=== PATIENT | female | born 1940 | race Caucasian/White ===

== ENCOUNTER → 2016-11-05 | Outpatient (CLI) | payer MEDICARE, BC ==
--- NOTE | 2016-11-05 17:30 | BD ---
EXAMINATION TYPE: MG DEXA axial skeleton. DATE OF EXAM: 11/05/2016 3:25 PM COMPARISON: YES CLINICAL HISTORY: 76-year-old female screening Height: 5'4 Weight: 160 FRAX RISK QUESTIONS: Alcohol (3 or more units per day): no Family History (Parent hip fracture): no Glucocorticoids (More than 3mos): no (Ex: prednisone, prednisolone, methylprednisolone, dexamethasone, and hydrocortisone). History of Fracture in Adulthood: no Secondary Osteoporosis: 1. Type 1 Diabetes: no 2. Hyperthyroidism: no 3. Menopause before 45: no 4. Malnutrition: no 5. Chronic liver disease: no Rheumatoid Arthritis: no Current Tobacco Use: no RISK FACTORS HISTORY OF: Drink Alcohol: Diet low in dairy products/other sources of calcium: Postmenopausal woman: Take estrogen and/or progesterone medications: How lon years MEDICATIONS: Additional Medications: blood pressure, pain meds, Additional History: screening EXAM MEASUREMENTS: Bone mineral densitometry was performed using the [employer] System. Bone mineral density as measured about the Lumbar spine is: ----- L1-L4(G/cm2): 1.697 T Score Values are as follows: ----- L2: 2.8 ----- L3: 5.0 ----- L4: 7.2 ----- L1-L-4: 4.3 Bone mineral density has: Increased 2.3 % since study of: 12/20/2013 Bone mineral density about the R hip (g/cm2): 1.416 Bone mineral density about the L hip (g/cm2): 1.451 T Score values are as follows: -----R Neck: 2.7 -----L Neck: 3.0 -----R Intertrochanter: 3.3 -----L Intertrochanter: 2.8 Bone mineral density has: Decreased -0.1% since study of: 12/20/2013 IMPRESSION: Normal (Values between +1 and -1 indicate normal bone mass). Rescreen in 5 years. NOTE: T-SCORE=SD OF THE YOUNG ADULT MEAN.
--- NOTE | 2016-11-07 07:57 | MM ---
Reason for exam: screening (asymptomatic). Last mammogram was performed 1 year and 3 months ago. History: Patient is postmenopausal and history of other cancer. Family history of breast cancer in 2 paternal cousins. Benign FNA biopsy, 1981. Taking estrogen for 15 years 5 months beginning at age 56. Taking progesterone for 15 years 5 months beginning at age 56. Physical Findings: A clinical breast exam by your physician is recommended on an annual basis and results should be correlated with mammographic findings. MG 3D Screening Mammo W/Cad Bilateral CC and MLO view(s) were taken. Prior study comparison: August 14, 2015, left breast MG 3d work up w/cad LT. August 02, 2015, bilateral MG screening mammo w CAD. March 22, 2014, bilateral MG screening mammo w CAD. March 03, 2013, bilateral digital screening mammo w/CAD. The breast tissue is heterogeneously dense. This may lower the sensitivity of mammography. No significant changes when compared with prior studies. ASSESSMENT: Negative, BI-RAD 1 RECOMMENDATION: Routine screening mammogram of both breasts in 1 year.
== END | disposition home or self-care (01) ==
LOC: RADMAMWWP 14:50
PROVIDERS: ATTEND Internal Medicine Geriatric Medicine
DX: Z12.31 Encounter for screening mammogram for malignant neoplasm of breast (principal); Z00.00 Encounter for general adult medical examination without abnormal findings
CPT/HCPCS: 77080; 77063; G0202

== ENCOUNTER → 2018-08-03 | Outpatient (CLI) | payer MEDICARE, BC ==
[2018-08-03 11:00] LABS: Basophils % (A) 1 %; Eosinophils # (A) 0.1 k/uL (0-0.7); Eosinophils % (A) 2 %; HCT 41.2 % (34.0-46.0); HGB 14.2 gm/dL (11.4-16.0); Lymphocytes # (A) 1.5 k/uL (1.0-4.8); Lymphocytes % (A) 27 %; MCH 32.7 pg (25.0-35.0); MCHC 34.6 g/dL (31.0-37.0); MCV 94.7 fL (80.0-100.0); Mean Platelet Volume 6.9; Monocytes # (A) 0.3 k/uL (0-1.0); Monocytes % (A) 6 %; Neutrophils # (A) 3.5 k/uL (1.3-7.7); Neutrophils % (A) 63 %; Platelet Count 273 k/uL (150-450); RBC 4.35 m/uL (3.80-5.40); WBC 5.6 k/uL (3.8-10.6)
[2018-08-03 11:17] LABS: Albumin 4.3 g/dL (3.5-5.0); Calcium 9.8 mg/dL (8.4-10.2); Potassium 4.3 mmol/L (3.5-5.1); Total Bilirubin 0.7 mg/dL (0.2-1.3); Total Protein 6.9 g/dL (6.3-8.2)
[2018-08-03 11:31] LABS: T4, Free (Free Thyroxine) 1.13 ng/dL (0.78-2.19)
--- NOTE | 2018-08-03 11:42 | MR ---
EXAMINATION TYPE: MR lumbar spine wo con DATE OF EXAM: 08/03/2018 COMPARISON: NONE HISTORY: Spinal Stenosis TECHNIQUE: T1 and T2 axial and sagittal images of the lumbar spine are submitted. FINDINGS: There is no abnormal signal seen within the visualized spinal cord or paraspinal soft tissu es. There is sagittal disc bulge at T10-T11. Loss the normal cervical lordosis. At L1-2 there is hypertrophic change of the facets. There is circumferential disc bulging. No foramin al encroachment. No Canal stenosis. At L2-3 there is diffuse circumferential disc bulge with facet arthropathy and ligamentum flavum hype rtrophy. Mild bilateral foraminal encroachment. At L3-4 there is severe degenerative disc disease with facet arthropathy and ligamentum flavum hypert rophy. Broad-based disc bulging is seen. Findings suggest mild central stenosis. There is a 2 mm retr olisthesis of L3 relative to L4 which contributes. [id number] bilateral foraminal encroachment greater on the left. At L4-5 there is degenerative disc disease with advanced facet arthropathy and hypertrophy ligamentum flavum. Broad-based central disc bulging results in borderline central stenosis. Neural foramina are patent. At L5-S1 there is degenerative disc disease and facet arthropathy. No disc herniation or canal stenos is. Mild bilateral foraminal encroachment. IMPRESSION: 1. Multilevel degenerative disc disease with severe changes at L3-L4 and to millimeter retrolisthesis of L3 relative to L4. Retrolisthesis with disc bulging and hypertrophic changes result in mild centr al stenosis. 2. Multilevel facet arthropathy. 3. Borderline central stenosis L4-L5 secondary to circumferential broad-based disc bulging and hypert rophic changes of the facets and ligamentum flavum. 4. Mild bilateral foraminal encroachment L5-S1 secondary to hypertrophic facet arthropathy. 5. There is sagittal disc bulging T10-T11 which is likely partially included on the exam in the lower thoracic spine.
[2018-08-03 21:26] LABS: Hemoglobin A1C 5.3 % (4.0-6.0)
== END | disposition home or self-care (01) ==
LOC: RADMRIMAIN 09:04
PROVIDERS: ATTEND Internal Medicine Geriatric Medicine
DX: M48.061 Spinal stenosis, lumbar region without neurogenic claudication (principal); M43.16 Spondylolisthesis, lumbar region; M51.26 Other intervertebral disc displacement, lumbar region; M51.36 Other intervertebral disc degeneration, lumbar region; M46.87 Other specified inflammatory spondylopathies, lumbosacral region; M46.06 Spinal enthesopathy, lumbar region; Z00.00 Encounter for general adult medical examination without abnormal findings; E03.9 Hypothyroidism, unspecified; K21.9 Gastro-esophageal reflux disease without esophagitis; I10 Essential (primary) hypertension; E78.00 Pure hypercholesterolemia, unspecified; R94.4 Abnormal results of kidney function studies
CPT/HCPCS: 72148; 80053; 80061; 82565; 83036; 84439; 84443; 85025

== ENCOUNTER → 2019-02-23 | Outpatient (CLI) | payer MEDICARE, BC ==
--- NOTE | 2019-02-25 14:07 | MM ---
Reason for exam: screening (asymptomatic). Last mammogram was performed 2 years and 4 months ago. History: Patient is postmenopausal and has history of other cancer at age 76. Family history of breast cancer in 2 paternal cousins. Benign FNA biopsy, 1981. Taking estrogen for 15 years 5 months beginning at age 56. Taking progesterone for 15 years 5 months beginning at age 56. Physical Findings: A clinical breast exam by your physician is recommended on an annual basis and results should be correlated with mammographic findings. MG 3D Screening Mammo W/Cad Bilateral CC and MLO view(s) were taken. Prior study comparison: November 05, 2016, bilateral MG 3d screening mammo w/cad. August 14, 2015, left breast MG 3d work up w/cad LT. The breast tissue is heterogeneously dense. This may lower the sensitivity of mammography. There are benign appearing round calcifications in the left breast. There is no discrete abnormality. ASSESSMENT: Benign, BI-RAD 2 RECOMMENDATION: Routine screening mammogram of both breasts in 1 year.
== END | disposition home or self-care (01) ==
LOC: RADMAMWWP 15:36
PROVIDERS: ATTEND Obstetrics & Gynecology
DX: Z12.31 Encounter for screening mammogram for malignant neoplasm of breast (principal)
CPT/HCPCS: 77063; 77067

== ENCOUNTER → 2019-03-02 | Outpatient (CLI) | payer MEDICARE, BC ==
--- NOTE | 2019-03-03 09:10 | BD ---
EXAMINATION TYPE: Axial Bone Density DATE OF EXAM: 03/02/2019 COMPARISON: NONE CLINICAL HISTORY: Postmenopausal female Height: 64 Weight: 160.8 FRAX RISK QUESTIONS: Alcohol (3 or more units per day): no Family History (Parent hip fracture): no Glucocorticoids (More than 3mos): no (Ex: prednisone, prednisolone, methylprednisolone, dexamethasone, and hydrocortisone). History of Fracture in Adulthood: no Secondary Osteoporosis: 1. Type 1 Diabetes: no 2. Hyperthyroidism: no 3. Menopause before 45: no 4. Malnutrition: no 5. Chronic liver disease: no Rheumatoid Arthritis: no Current Tobacco Use: no RISK FACTORS HISTORY OF: Family History of Osteoporosis: no Active: yes Diet low in dairy products/other sources of calcium: no Postmenopausal woman: age 56 Take estrogen and/or progesterone medications: yes How lon years Lost more than 2 inches in height since high school: no MEDICATIONS: inhalers, premarin, blood pressure, prilosec Additional History: EXAM MEASUREMENTS: Bone mineral densitometry was performed using the [employer] System. Bone mineral density as measured about the Lumbar spine is: ----- L1-L4(G/cm2): 1.732 T Score Values are as follows: ----- L2: 2.9 ----- L3: 6.1 ----- L4: 7.4 ----- L1-L4: 4.6 Bone mineral density has: increased 2.3 % since study of: 11.05.2016 Bone mineral density about the R hip (g/cm2): 1.457 Bone mineral density about the L hip (g/cm2): 1.441 T Score values are as follows: -----R Neck: 3.0 -----L Neck: 2.9 -----R Total: 3.1 -----L Total: 3.1 Bone mineral density has: decreased -2.0 % since study of: 11.05.2016 IMPRESSION: Normal (Values between +1 and -1 indicate normal bone mass). Consider repeating this study in 5 year s or sooner if there is some new clinical indication. NOTE: T-SCORE=SD OF THE YOUNG ADULT MEAN.
== END | disposition home or self-care (01) ==
LOC: RADBDWWP 16:12
PROVIDERS: ATTEND Internal Medicine Geriatric Medicine
DX: M81.0 Age-related osteoporosis without current pathological fracture (principal)
CPT/HCPCS: 77080

== ENCOUNTER → 2019-07-13 | Outpatient (CLI) | payer MEDICARE, BC ==
--- NOTE | 2019-07-13 16:35 | XR ---
Cervical spine HISTORY: Pain, finger numbness 5 views of the cervical spine and 6 images There is an anterolisthesis grade 1 C4-5. Reversal the normal cervical lordosis is present. There is multilevel spondylosis. Loss of disc height is greatest at C6-7, C7-T1. Facet arthropathy changes are present. Mild foraminal encroachment present C5-6 and C6-7 the right, C7 on the left. Cervical verte bral bodies show preserved height. Bone mineralization mildly reduced. IMPRESSION: Degenerative disc disease and facet arthropathy.
== END ==
LOC: RADXRMAIN 14:52
PROVIDERS: ATTEND Internal Medicine Geriatric Medicine
DX: M50.323 Other cervical disc degeneration at C6-C7 level (principal); M46.92 Unspecified inflammatory spondylopathy, cervical region
CPT/HCPCS: 72050

== ENCOUNTER 2019-11-30 10:24 | Day surgery (SDC) | payer MEDICARE, BC, OTHER ==
[2019-11-28 13:11] VITALS: BMI 26.4
[~2019-11-30 10:24] MED LIST: DEXAMETHASONE SOD PHOSPHATE 10 MG/ML 1 ML VIAL IV ONE; LACTATED RINGERS 1,000 ML IV SCH; LIDOCAINE 1% 20 ML VIAL (10MG/ML) FOR IV START INTRADERMA PRN; MOXIFLOXACIN HCL 0.5% DROPS 3 ML BTL OP ONE; ONDANSETRON 4 MG/2 ML VIAL IVP ONE; TETRACAINE 0.5% OPHTH (PF) DROPS 4 ML BTL OP ONE; TIMOLOL 0.5% OPHTH DROPS 5 ML BTL OP ONE
[2019-11-30 11:49] VITALS: RESP 16; TEMP 97.4
[2019-11-30] MEDS: CYCLOPENTOLATE 1% OPHTH SOLN 2 ML BTL OP ONE ×3 (11:53→12:05)
[2019-11-30] MEDS: PHENYLEPHRINE 2.5% OPHTH DRP 2ML OP NR ×2 (11:56→12:02)
[2019-11-30] MEDS ORDERED: MIDAZOLAM 2 MG/2 ML VIAL ONE (12:41)
[2019-11-30] MEDS ORDERED: fentaNYL (PF) 50 MCG/ML 2 ML AMP ONE (12:41)
[2019-11-30] MEDS ORDERED: HYALURONATE SODIUM INTRAOCULAR 1 EACH SYRINGE (12MG/ML) INTRAOCULA ONE (12:43)
[2019-11-30] MEDS ORDERED: BALANCED SALT IRRIG SOLN COMB2 15 ML IRRIG.SOLN IRRIGATION ONE (12:43)
[2019-11-30] MEDS ORDERED: LIDOCAINE 1% (PF) 10MG/ML VIAL SQ ONE (12:44)
[2019-11-30] MEDS ORDERED: EPINEPHrine (PF) 0.3 ML in BALANCED SALT IRRIG SOLN COMB2 500 ML IRRIGATION ONE (12:55)
--- NOTE | 2019-11-30 13:17 | P.OP ---
Date of Procedure: 11/30/19 Preoperative Diagnosis: NS & reg astigm Postoperative Diagnosis: same Procedure(s) Performed: PIOL, OD Implants: MX60T 21.00 x 1.25 Anesthesia: MAC Surgeon: Gopi Munroe Pathology: none sent Condition: stable Disposition: same day Indications for Procedure: blurry vision Operative Findings: no complications
[2019-11-30 13:23] VITALS: PULSE 78
[2019-11-30 13:45] VITALS: BP 124/82
--- NOTE | 2019-12-01 06:39 | OP ---
OPERATIVE REPORT DATE OF SURGERY: November 30, 2019. PROCEDURES: Phacoemulsification of cataract and intraocular lens implant of the right eye. PREOPERATIVE DIAGNOSIS: Nuclear sclerosis and regular astigmatism. POSTOPERATIVE DIAGNOSES: Nuclear sclerosis and regular astigmatism. SURGEON: Dr. Gopi Munroe. ANESTHESIA: Topical. ESTIMATED BLOOD LOSS: None. SPECIMEN TAKEN: None. NARRATIVE: After obtaining the appropriate consent, the patient was brought to the operating room there she was asked to sit upright and the axes of 0 and 180 degrees were identified and marked with a gentian brunilda marker on the patient's cornea. This was followed by placing her in the proper supine position under cardiac monitoring, followed by being prepped and draped in the usual sterile manner. She was approached from her right temporal side. Using previously acquired corneal topography information, the axis of 4 degrees was identified and marked with a corneal marking instrument. At the 11 o'clock position an MVR blade was used to create a paracentesis port through this opening 1% Xylocaine MPF 50:50 mix of balanced salt solution was injected into the anterior chamber. This was followed by stabilization of the anterior chamber with Amvisc. At the 3 o'clock position a 2.5 mm keratome was used to create a self-sealing flap incision. Through this opening, a cystotome was introduced to begin the continuous tear capsulorrhexis which was completed using the Utrata forceps. Hydrodissection and hydrodelineation of the lens was accomplished with balanced salt solution. Phacoemulsification lens utilizing phaco chop was accomplished in 15 seconds of 15% power. Additional Xylocaine MPF was instilled into the anterior chamber. This was followed by removal of the remaining cortex under irrigation and aspiration as well as careful polishing of the posterior capsule in the capsule vacuum mode. Amvisc was then used to stabilize the capsular bag and a [employer]ausch [employer] Lomb MX60T 21 diopter by 1.25 diopter posterior chamber intraocular lens was then inserted into the capsular bag without difficulty. The remaining viscoelastic was removed from in and around the intraocular lens as well as the posterior capsule. Following deployment of the haptics, the intraocular lens was then rotated to correspond to the axis of 4 degrees, which had previously been identified on the patient's cornea. Following the correct position, the intraocular lens was tamponaded against the posterior capsule to attempt to stabilize its axis. The irrigation aspiration instrument was then removed carefully from the anterior chamber. The temporal incision was hydrated slightly and the eye was brought to normal intraocular pressure through the paracentesis port with balanced salt solution. She then received 2 drops of 0.5% timolol followed by 2 drops of moxifloxacin and was then lightly patched and shielded in the usual manner. There were no complications from the procedure. She tolerated the procedure well and was returned to outpatient recovery in good condition. MMODL / MYRANDAN: [id number] /
== END 2019-11-30 13:58 | disposition home or self-care (01) ==
LOC: OR 10:24
PROVIDERS: ATTEND Ophthalmology
DX: H25.13 Age-related nuclear cataract, bilateral (principal); H52.223 Regular astigmatism, bilateral; H00.023 Hordeolum internum right eye, unspecified eyelid; H00.026 Hordeolum internum left eye, unspecified eyelid; H52.03 Hypermetropia, bilateral; H52.4 Presbyopia; I10 Essential (primary) hypertension; H04.129 Dry eye syndrome of unspecified lacrimal gland; H91.90 Unspecified hearing loss, unspecified ear; M45.9 Ankylosing spondylitis of unspecified sites in spine; M25.572 Pain in left ankle and joints of left foot; M25.571 Pain in right ankle and joints of right foot; F41.9 Anxiety disorder, unspecified; J45.909 Unspecified asthma, uncomplicated; Z88.0 Allergy status to penicillin; Z88.2 Allergy status to sulfonamides; Z88.1 Allergy status to other antibiotic agents; Z98.890 Other specified postprocedural states; Z90.49 Acquired absence of other specified parts of digestive tract; Z85.820 Personal history of malignant melanoma of skin; Z96.652 Presence of left artificial knee joint; Z79.899 Other long term (current) drug therapy; Z79.1 Long term (current) use of non-steroidal anti-inflammatories (NSAID); Z79.890 Hormone replacement therapy; Z87.891 Personal history of nicotine dependence; Z97.3 Presence of spectacles and contact lenses; Z85.828 Personal history of other malignant neoplasm of skin; Z83.518 Family history of other specified eye disorder; Z80.42 Family history of malignant neoplasm of prostate; Z82.49 Family history of ischemic heart disease and other diseases of the circulatory system
CPT/HCPCS: 66984; C1780; J2250; J1100; J2405; J0171; J3010; J2001

== ENCOUNTER 2019-12-14 08:11 | Day surgery (SDC) | payer MEDICARE, BC, OTHER ==
[2019-12-12 12:35] VITALS: BMI 26.6
[~2019-12-14 08:11] MED LIST changes: -DEXAMETHASONE SOD PHOSPHATE 10 MG/ML 1 ML VIAL IV ONE; -ONDANSETRON 4 MG/2 ML VIAL IVP ONE
[2019-12-14 08:39] VITALS: TEMP 96.7
[2019-12-14] MEDS: CYCLOPENTOLATE 1% OPHTH SOLN 2 ML BTL OP ONE ×3 (08:43→08:57)
[2019-12-14] MEDS: PHENYLEPHRINE 2.5% OPHTH DRP 2ML OP NR ×3 (08:46→09:01)
[2019-12-14] MEDS ORDERED: MIDAZOLAM 2 MG/2 ML VIAL ONE (09:28)
[2019-12-14] MEDS ORDERED: fentaNYL (PF) 50 MCG/ML 2 ML AMP ONE (09:28)
[2019-12-14] MEDS ORDERED: BALANCED SALT IRRIG SOLN COMB2 15 ML IRRIG.SOLN IRRIGATION ONE (09:45)
[2019-12-14] MEDS ORDERED: HYALURONATE SODIUM INTRAOCULAR 1 EACH SYRINGE (12MG/ML) INTRAOCULA ONE (09:45)
[2019-12-14] MEDS ORDERED: LIDOCAINE 1% (PF) 10MG/ML VIAL SQ ONE (09:46)
[2019-12-14] MEDS ORDERED: EPINEPHrine (PF) 0.3 ML in BALANCED SALT IRRIG SOLN COMB2 500 ML IRRIGATION ONE (09:46)
--- NOTE | 2019-12-14 10:02 | P.OP ---
Date of Procedure: 12/14/19 Preoperative Diagnosis: NS & astigmatism, reg Postoperative Diagnosis: same Procedure(s) Performed: PIOL, OS Implants: MX60T 21.50x 2.00 Anesthesia: MAC Surgeon: Gopi Munroe Pathology: none sent Condition: stable Disposition: same day Indications for Procedure: blurry vision Operative Findings: no complications
[2019-12-14 10:17] VITALS: BP 108/61; PULSE 79; RESP 18
--- NOTE | 2019-12-14 23:25 | OP ---
OPERATIVE REPORT DATE OF SURGERY: 12/14/2019. PROCEDURE: Phacoemulsification of cataract and intraocular lens implant of the left eye. PREOPERATIVE DIAGNOSES: Nuclear sclerosis and regular astigmatism. POSTOPERATIVE DIAGNOSES: Nuclear sclerosis and regular astigmatism. SURGEON: Dr. Gopi Munroe. ANESTHESIA: Topical. ESTIMATED BLOOD LOSS: None. SPECIMEN TAKEN: None. NARRATIVE: After obtaining the appropriate consent, the patient was brought to the operating room. There she was asked to sit upright, and the axis of 0 and 180 degrees was identified and marked with a gentian brunilda marker. She was then placed in the proper supine position under cardiac monitoring, then prepped and draped in the usual sterile manner. She was approached from her left temporal side, and using previously acquired corneal topography information, the axis of 5 degrees was identified and marked with a corneal axis marker. At the 5 o'clock position an MVR blade was used to create a paracentesis port. Through this opening 1% xylocaine MPF 50:50 mix with balanced-salt solution was injected into the anterior chamber. This was followed by stabilization with Amvisc. At the 3 o'clock position, a 2.5 mm keratome was used to create a self-sealing corneal flap incision. Through this opening a cystotome was introduced to begin a continuous tear capsulorrhexis, which was then completed using the Utrata forceps. Hydrodissection and hydrodelineation of the lens was accomplished with balanced-salt solution. Phacoemulsification of the lens utilizing Phaco Chop was accomplished in 17.12 seconds at 11% power. Additional xylocaine MPF was instilled in the anterior chamber. This was followed by removal of the remaining cortex under irrigation and aspiration along with careful polishing of the posterior capsule in the capsule vacuum mode. Amvisc was used to stabilize the capsular bag and a Bausch and Lomb MX60T 21.5 diopter sphere x 2 diopter cylinder posterior chamber intraocular lens was then injected into the capsular bag without difficulty. The remaining viscoelastic was removed from in and around the intraocular lens and hash koo were identified and aligned with the axis of 5 degrees as previously noted on the patient's cornea. The remaining viscoelastic was then removed from the anterior chamber. The eye was then brought to normal intraocular pressure through the paracentesis port with balanced-salt solution and the incisions were confirmed watertight. She then received 2 drops of 0.5% timolol followed by 2 drops of moxifloxacin, was then lightly patched and shielded in the usual manner. There were no complications from the procedure. She tolerated the procedure well and was returned to Outpatient Recovery in good condition. SHAVON / JUNE: [id number] /
== END 2019-12-14 10:33 | disposition home or self-care (01) ==
LOC: OR 08:11
PROVIDERS: ATTEND Ophthalmology
DX: H25.12 Age-related nuclear cataract, left eye (principal); H52.223 Regular astigmatism, bilateral; H00.023 Hordeolum internum right eye, unspecified eyelid; H00.026 Hordeolum internum left eye, unspecified eyelid; H52.03 Hypermetropia, bilateral; H52.4 Presbyopia; H04.129 Dry eye syndrome of unspecified lacrimal gland; Z96.1 Presence of intraocular lens; I10 Essential (primary) hypertension; Z85.820 Personal history of malignant melanoma of skin; J45.909 Unspecified asthma, uncomplicated; M19.90 Unspecified osteoarthritis, unspecified site; K21.9 Gastro-esophageal reflux disease without esophagitis; Z90.49 Acquired absence of other specified parts of digestive tract; Z96.659 Presence of unspecified artificial knee joint; Z98.890 Other specified postprocedural states; Z83.518 Family history of other specified eye disorder; Z80.42 Family history of malignant neoplasm of prostate; Z82.49 Family history of ischemic heart disease and other diseases of the circulatory system; Z79.1 Long term (current) use of non-steroidal anti-inflammatories (NSAID); Z79.899 Other long term (current) drug therapy; Z88.1 Allergy status to other antibiotic agents; Z88.0 Allergy status to penicillin; Z88.2 Allergy status to sulfonamides
CPT/HCPCS: 66984; V2787; C1780; J2250; J0171; J3010; J2001

== ENCOUNTER → 2020-06-19 | Outpatient (CLI) | payer MEDICARE ==
--- NOTE | 2020-06-19 17:57 | ECHOF ---
Referral Reason:I27.20 Pulmonary hypertension MEASUREMENTS -------- HEIGHT: 162.6 cm WEIGHT: 73.5 kg BP: 140/82 RVIDd: 2.5 cm (< 3.3) IVSd: 1.0 cm (0.6 - 1.1) LVIDd: 4.6 cm (3.9 - 5.3) LVPWd: 1.1 cm (0.6 - 1.1) IVSs: 1.6 cm LVIDs: 3.2 cm LVPWs: 1.3 cm LA Diam: 3.2 cm (2.7 - 3.8) LAESV Index (A-L): 18.72 ml/m Ao Diam: 3.2 cm (2.0 - 3.7) AV Cusp: 1.7 cm (1.5 - 2.6) MV EXCURSION: 16.074 mm (> 18.000) MV EF SLOPE: 58 mm/s (70 - 150) EPSS: 0.3 cm MV E Jonny: 0.90 m/s MV DecT: 275 ms MV A Jonny: 1.03 m/s MV E/A Ratio: 0.87 RAP: 5.00 mmHg RVSP: 24.18 mmHg FINDINGS -------- Sinus rhythm. This was a technically good study. The left ventricular size is normal. There is borderline concentric left ventricular hypertrophy. Overall left ventricular systolic function is normal with, an EF between 60 - 65 %. Sigmoid shaped septum with focal hypertrophy of the basal septum. The remaining wall thickness is normal. The right ventricle is normal in size. Normal LA size by volume 22+/-6 ml/m2. The right atrium is normal in size. Interatrial and interventricular septum intact. The aortic valve is trileaflet and appears structurally normal. There is trace to mild mitral regurgitation. Trace tricuspid regurgitation present. Right ventricular systolic pressure is normal at < 35 mmHg. Trace/mild (physiologic) pulmonic regurgitation. The aortic root size is normal. Normal inferior vena cava with normal inspiratory collapse consistent with estimated right atrial pre ssure of 5 mmHg. The inferior vena cava is mildly dilated. There is no pericardial effusion. CONCLUSIONS -------- 1. The left ventricular size is normal. 2. There is borderline concentric left ventricular hypertrophy. 3. Overall left ventricular systolic function is normal with, an EF between 60 - 65 %. 4. Sigmoid shaped septum with focal hypertrophy of the basal septum. The remaining wall thickness is normal. 5. There is trace to mild mitral regurgitation. 6. Trace tricuspid regurgitation present. 7. Trace/mild (physiologic) pulmonic regurgitation. 8. The inferior vena cava is mildly dilated. 9. There is no pericardial effusion. [facility] AGENT: Juany Correia RDCS
== END | disposition home or self-care (01) ==
LOC: RADECHMAIN 14:55
PROVIDERS: ATTEND Internal Medicine Geriatric Medicine
DX: I08.1 Rheumatic disorders of both mitral and tricuspid valves (principal)
CPT/HCPCS: 93306

== ENCOUNTER → 2020-08-31 | Outpatient (CLI) | payer MEDICARE ==
--- NOTE | 2020-09-03 10:21 | MM ---
Reason for exam: screening (asymptomatic). Last mammogram was performed 1 year and 6 months ago. History: Patient is postmenopausal and has history of other cancer at age 76. Family history of breast cancer in 2 paternal cousins. Benign FNA biopsy, 1981. Taking estrogen for 15 years 5 months beginning at age 56. Taking progesterone for 15 years 5 months beginning at age 56. Physical Findings: A clinical breast exam by your physician is recommended on an annual basis and results should be correlated with mammographic findings. MG 3D Screening Mammo W/Cad Bilateral CC and MLO view(s) were taken. Prior study comparison: February 23, 2019, bilateral MG 3d screening mammo w/cad. November 05, 2016, bilateral MG 3d screening mammo w/cad. The breast tissue is heterogeneously dense. This may lower the sensitivity of mammography. There is no discrete abnormality. No significant changes when compared with prior studies. ASSESSMENT: Negative, BI-RAD 1 RECOMMENDATION: Routine screening mammogram of both breasts in 1 year.
== END | disposition home or self-care (01) ==
LOC: RADMAMWWP 15:10
PROVIDERS: ATTEND Obstetrics & Gynecology
DX: Z12.31 Encounter for screening mammogram for malignant neoplasm of breast (principal)
CPT/HCPCS: 77063; 77067

== ENCOUNTER → 2020-11-09 | Outpatient (CLI) | payer MEDICARE ==
[2020-11-09 13:15] LABS: African American GFR (CKD) >90 (>60 ml/min/1.73 sqM); Blood Urea Nitrogen 20 mg/dL (7-17); Non-African American GFR(CKD) 84 (>60 ml/min/1.73 sqM)
--- NOTE | 2020-11-09 13:45 | CT ---
EXAMINATION TYPE: CT chest w con DATE OF EXAM: 11/09/2020 COMPARISON: NONE HISTORY: Chronic cough. CT DLP: 436 mGycm. Automated Exposure Control for Dose Reduction was Utilized. TECHNIQUE: CT scan of the thorax is performed following with IV Contrast, patient injected with 100 mL of Isovue M300. MIP Images are created on CT scanner and reviewed. 3D reconstructed images are cr eated on an independent workstation and reviewed. FINDINGS: LUNGS: Mild biapical pleural/parenchymal scarring. No suspicious focal consolidation or groundglass opacity. There is no pleural effusion or pneumothorax seen. No suspicious nodules or masses. Mild l eft basilar linear scarring. The tracheobronchial tree is patent. MEDIASTINUM: There are no greater than 1 cm hilar or mediastinal lymph nodes. No cardiomegaly or pe ricardial effusion is seen. Mucous hypertrophy of the intra-arterial septum. Coronary artery calcifi cation is present which is noted underlying coronary artery disease. OTHER: Cholecystectomy clips. Stomach poorly distended and thus suboptimally evaluated. Underlying S- shaped scoliosis. Moderate multilevel spurring in the spine. IMPRESSION: Mild to minimal chronic changes. No acute pulmonary process.
== END | disposition home or self-care (01) ==
LOC: RADCTMAIN 11:56
PROVIDERS: ATTEND Internal Medicine Critical Care Medicine
DX: R91.8 Other nonspecific abnormal finding of lung field (principal); R05 Cough
CPT/HCPCS: 82565; 84520; 71260; 36415; Q9967

== ENCOUNTER → 2020-12-25 | Outpatient (CLI) | payer MEDICARE ==
[~2020-12-25] MED LIST changes: -LACTATED RINGERS 1,000 ML IV SCH; -LIDOCAINE 1% 20 ML VIAL (10MG/ML) FOR IV START INTRADERMA PRN; -MOXIFLOXACIN HCL 0.5% DROPS 3 ML BTL OP ONE; +REGADENOSON 0.4 MG/5 ML SYRINGE IV PRN; -TETRACAINE 0.5% OPHTH (PF) DROPS 4 ML BTL OP ONE; -TIMOLOL 0.5% OPHTH DROPS 5 ML BTL OP ONE
--- NOTE | 2020-12-25 12:31 | NM ---
EXAMINATION TYPE: NM stress lexiscan cardiolite DATE OF EXAM: 12/25/2020 COMPARISON: Chest CT November 09, 2020 HISTORY: History of hypertension and asthma along with tobacco use and hypercholesterolemia presents with chest pain and tightness TECHNIQUE: After the intravenous administration of 9.2 mCi Tc 99m Sestamibi - Cardiolite resting SPE CT images acquired 45 minutes post injection. The patient received 0.4mg Lexiscan, 25.2 mCi Tc 99m Sestamibi - Stress images obtained [address] injection FINDINGS: Review of stress and rest SPECT images demonstrates no distinct perfusion abnormality. Gated analysi s shows normal wall motion with an estimated left ventricular ejection fraction of 68 %. IMPRESSION: No scintigraphic evidence for reversible ischemia.
--- NOTE | 2020-12-25 14:17 | EST ---
EXERCISE STRESS AGE: 80 SEX: Female HT: 5'4" WT: 156 PROTOCOL: Lexiscan Cardiolite STAGE: N/A DURATION OF EXERCISE: N/A HEART RATE REST: 76 BLOOD PRESSURE REST: 139/94 MAXIMUM HEART RATE ACHIEVED: 88 MAXIMUM BLOOD PRESSURE: 142/73 85% MPHR: 120 100% MPHR: 141 METS: N/A INDICATIONS: chest tightness CLINICAL INFORMATION: Baseline rhythm is a sinus mechanism, rate of 76, normal axis and intervals, poor R progression, cannot exclude anteroseptal myocardial infarction. Baseline blood pressure 139/94 mmHg. Patient received injection of Lexiscan. Electrocardiograph monitoring revealed no evidence of diagnostic ischemic ST deviation. Single PVCs were noted. Cardiolite was injected per protocol. CONCLUSION: 1. Nondiagnostic electrocardiograph stress testing. 2. Nuclear images will be reported separately. MMODL / IJN: [id number] /
== END ==
LOC: RADNMMAIN 08:00
PROVIDERS: ATTEND Internal Medicine Geriatric Medicine
DX: I10 Essential (primary) hypertension (principal); J45.909 Unspecified asthma, uncomplicated; Z72.0 Tobacco use
CPT/HCPCS: 93017; 78452; A9500; J2785

== ENCOUNTER 2021-06-05 09:13 | Day surgery (SDC) | payer MEDICARE ==
[2021-06-04 09:07] VITALS: BMI 27.3
[~2021-06-05 09:13] MED LIST changes: +LACTATED RINGERS 1,000 ML IV SCH; +LIDOCAINE 1% (10MG/ML) FOR IV START INTRADERMA PRN; -REGADENOSON 0.4 MG/5 ML SYRINGE IV PRN
[2021-06-05 10:40] VITALS: RESP 16; TEMP 98.4
[2021-06-05] MEDS ORDERED: LIDOCAINE 1% INJ 10MG/ML (20 ML MDV) ONE (11:26)
[2021-06-05] MEDS ORDERED: PROPOFOL 10 MG/ML 20 ML VIAL IV ONE (11:26)
--- NOTE | 2021-06-05 11:35 | P.PCN ---
Date of Procedure: 06/05/21 Procedure(s) Performed: BRIEF HISTORY: Patient is a 81-year-old, pleasant, white female scheduled for an upper endoscopy as a part of evaluation long-standing history of GERD for which she is on omeprazole 20 mg daily. PROCEDURE PERFORMED: Esophagogastroduodenoscopy. PREOPERATIVE DIAGNOSIS: Long-standing history of GERD. IV sedation per anesthesia. PROCEDURE: After informed consent was obtained, the patient was brought into the endoscopy unit. IV sedation was administered by Anesthesia under continuous monitoring. Initially the Olympus GIF-140 video endoscope was inserted into the mouth. Esophagus intubated without any difficulty. It was gradually advanced into the stomach and duodenum and carefully examined. The bulb and the second part of the duodenum appeared normal. The scope at this time was withdrawn to the stomach, adequately insufflated with air, and upon careful examination, muc mahsa of the antrum, body, cardia and the fundus appeared normal. The scope was then withdrawn into the esophagus. The GE junction was located at 35 cm from the incisors. Small sliding-type well hernia noted. The esophagus appeared normal. There were no erosions or ulcerations seen . No evidence of Snow's esophagus and the patient tolerated the procedure well. IMPRESSION: 1. Small hiatal hernia. 2. No evidence of esophagitis or Snow's esophagus. RECOMMENDATIONS: The findings of this examination were discussed with the patient and is a family.. She was advised to continue with omeprazole 20 mg daily and follow antireflux measures.
[2021-06-05 11:49] VITALS: BP 104/62; PULSE 71
== END 2021-06-05 12:13 | disposition home or self-care (01) ==
LOC: ORWHC2ENDO 09:13
PROVIDERS: ATTEND Internal Medicine Gastroenterology
DX: K21.9 Gastro-esophageal reflux disease without esophagitis (principal); K44.9 Diaphragmatic hernia without obstruction or gangrene; Z88.0 Allergy status to penicillin; Z88.2 Allergy status to sulfonamides; Z79.899 Other long term (current) drug therapy; M19.90 Unspecified osteoarthritis, unspecified site; Z85.828 Personal history of other malignant neoplasm of skin; E78.5 Hyperlipidemia, unspecified; I25.10 Atherosclerotic heart disease of native coronary artery without angina pectoris; J45.909 Unspecified asthma, uncomplicated
CPT/HCPCS: 43235; J2001; J2704

== ENCOUNTER → 2021-12-17 | Outpatient (CLI) | payer MEDICARE ==
--- NOTE | 2021-12-17 20:10 | CT ---
EXAMINATION TYPE: CT brain wo con DATE OF EXAM: 12/17/2021 COMPARISON: CT dated 03/09/2013 HISTORY: headache following head injury [address] DLP: 961 mGycm Automated exposure control for dose reduction was used. TECHNIQUE: CT scan of the brain is performed without IV contrast administration. FINDINGS: Unremarkable morphology of the cerebral hemispheres, cerebellum and brainstem. No acute intracranial hemorrhage. No gross acute cortical infarct. No midline shift, herniation or ventriculectomy. Unremarkable nowak-white matter differentiation, basal cisterns, sella and CP angles. No gross space-o ccupying lesion, vasogenic edema or mass effect. Unremarkable orbits. Clear visualized paranasal sinuses and mastoid air cells. Degenerative changes o f the TMJs. IMPRESSION: No acute intracranial abnormality or gross space-occupying lesion by this nonenhanced CT scan.
== END | disposition home or self-care (01) ==
LOC: RADCTMAIN 16:05
PROVIDERS: ATTEND Internal Medicine Geriatric Medicine
DX: R51.9 Headache, unspecified (principal)
CPT/HCPCS: 70450

== ENCOUNTER → 2022-04-02 | Outpatient (CLI) | payer MEDICARE ==
--- NOTE | 2022-04-03 07:49 | US ---
EXAMINATION TYPE: US st tissue neck DATE OF EXAM: 04/02/2022 COMPARISON: CT 11/09/2020. CLINICAL HISTORY: 81-year-old female R22.1 SWELLING, MASS AND LUMP. Hotbed Operator notes: Visible lump and palp superior to right collarbone. TECHNIQUE AND FINDINGS: Hotbed Operator notes: Area of concern scanned. Hypoechoic nonvascular area seen measuring 3.4 x 2.2 x 1 .8 cm. Some of this area appears solid and some appears to be comprised of fluid. Some of the images suggest that the lesion is centered at the sternoclavicular joint. We suspect degenerative change and a seco ndary joint effusion and capsular thickening. Contralateral images taken. No abnormality is seen on the contralateral side. IMPRESSION: Targeted scanning right base of the neck. Images seem to show the right sternoclavicular joint and a large 3.4 cm area of heterogeneous capsular distention with mixed fluid and synovial thickening. Prob ably on the basis of right sternoclavicular joint OA. Clinically correlate to corroborate. CT can be considered to assess for potential changes compared to 11/09/2020.
== END | disposition home or self-care (01) ==
LOC: RADUSWWP 15:43
PROVIDERS: ATTEND Internal Medicine Geriatric Medicine
DX: R22.1 Localized swelling, mass and lump, neck (principal)
CPT/HCPCS: 76536

== ENCOUNTER 2022-10-12 16:51 | Emergency (ER) | payer MEDICARE ==
[2022-10-12 17:03] VITALS: BP 196/95; PULSE 67; RESP 18; TEMP 97.5
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
--- NOTE | 2022-10-12 17:33 | XR ---
EXAMINATION TYPE: XR foot complete RT DATE OF EXAM: 10/12/2022 COMPARISON: NONE HISTORY: Pain TECHNIQUE: 3 views FINDINGS: There is plantar calcaneal spurring. Metatarsals are intact. The toes are intact. There is no evidence of fracture nor dislocation. IMPRESSION: Calcaneal spurring. No fracture seen.
== END 2022-10-12 18:18 | disposition home or self-care (01) ==
LOC: EC 16:51
DX: S90.31XA Contusion of right foot, initial encounter (principal); I10 Essential (primary) hypertension; J45.909 Unspecified asthma, uncomplicated; K21.9 Gastro-esophageal reflux disease without esophagitis; Z88.0 Allergy status to penicillin; Z88.1 Allergy status to other antibiotic agents; Z88.2 Allergy status to sulfonamides; Z87.891 Personal history of nicotine dependence; Z79.899 Other long term (current) drug therapy; V89.2XXA Person injured in unspecified motor-vehicle accident, traffic, initial encounter; Y93.A3 Activity, aerobic and step exercise; Y92.410 Unspecified street and highway as the place of occurrence of the external cause
CPT/HCPCS: 99284

== ENCOUNTER → 2022-10-23 | Outpatient (CLI) | payer MEDICARE ==
--- NOTE | 2022-10-23 12:59 | CA ---
Exercise Stress Test Report Name: Kami Lizarraga Exam Date: 10/23/2022 09:14 Exam Location: [place] Stress Ht (in): 64 Wt (lb): 146 BSA: 1.71 Ordering Phys: Jessica Martin MD Referring Phys: Isabella De Los Santos Technologist: Keyur Rich Age: 82 Gender: F : 1940 Procedure CPT: Indications: I25.10 ICD-10 Codes: Patient History: Patient is post stent in August. Clearance for cardiac rehab. Medications: Meds past 24 hrs: Pretest Chest Pain: STRESS TEST Modified Chris Protocol Exercise Duration (min:sec): 07:[address] Depressions (mm): Angina Score: Rivera Score: Resting HR (bpm): 72 Peak HR (bpm): 109 Resting BP (mmHg): 142 / 89 Peak BP (mmHg): 192 / 94 MPHR: 139 Target HR: 118 % MPHR: 78 METS: 3.5 Total Dose: Peak Dose: Atropine: Double Product: 34970 BP Response: Stress Termination: Fitgue Stress Symptoms: No chest pain or symptoms Stress Summary: ECG ANALYSIS Resting ECG: Stress ECG: CONCLUSIONS Patient underwent exercise stress EKG with a Chris protocol treadmill stress test. Patient exercised into Stage 3 for a total of 7 minutes. Patient's maximum heart rate was 109 which represented 78 % age-predicted maximum heart rate. Stress EKG findings: At baseline patient's EKG showed normal sinus rhythm, normal axis, Q-wave in V1 and V2, no significant ST or T wave abnormalities. At peak exercise, EKG showed rare PVCs and no significant ST or T wave abnormalities. Conclusions: 1. Inadequate study to assess for ischemia given patient only reached 78% maximum predicted heart rate 2. However at 78% maximum predicted heart rate, no inducible ischemia 3. Fair exercise capacity. Dr. Tyron Solorio DO (Electronically Signed) Final Date: 23 October 2022 12:58
== END | disposition home or self-care (01) ==
LOC: RADNMMAIN 08:38
PROVIDERS: ATTEND Internal Medicine Cardiovascular Disease
DX: I25.10 Atherosclerotic heart disease of native coronary artery without angina pectoris (principal)
CPT/HCPCS: 93017

== ENCOUNTER 2022-11-03 13:53 | Emergency (ER) | payer OTHER, MEDICARE ==
[2022-11-03 14:59] VITALS: RESP 18
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
[2022-11-03 18:23] VITALS: BP 166/79; PULSE 67; TEMP 97.8
== END 2022-11-03 17:50 | disposition home or self-care (01) ==
LOC: EC 13:53
DX: S16.1XXA Strain of muscle, fascia and tendon at neck level, initial encounter (principal); S46.912A Strain of unspecified muscle, fascia and tendon at shoulder and upper arm level, left arm, initial encounter; R42 Dizziness and giddiness; M13.88 Other specified arthritis, other site; J45.909 Unspecified asthma, uncomplicated; K21.9 Gastro-esophageal reflux disease without esophagitis; E78.5 Hyperlipidemia, unspecified; I10 Essential (primary) hypertension; Z87.891 Personal history of nicotine dependence; Z88.0 Allergy status to penicillin; Z88.2 Allergy status to sulfonamides; Z88.8 Allergy status to other drugs, medicaments and biological substances; Z79.899 Other long term (current) drug therapy; V49.40XA Driver injured in collision with unspecified motor vehicles in traffic accident, initial encounter
CPT/HCPCS: 70450; 72125; 99284

== ENCOUNTER → 2023-08-06 | Outpatient (CLI) | payer MEDICARE ==
--- NOTE | 2023-08-10 01:44 | MM ---
Reason for Exam: Screening (asymptomatic). Last mammogram was performed 2 year(s) and 11 month(s) ago. Patient History: Menarche at age 14. First Full-Term at age 24. Postmenopausal. Other cancer, age 76. Currently using Estrogen, beginning at age 56 for 15 years, 5 months. Currently using Progesterone, beginning at age 56 for 15 years, 5 months. Benign FNA Biopsy. Paternal cousin had breast cancer. Paternal cousin had breast cancer. Risk Values: Deepthi 5 year model risk: 1.7%. NCI Lifetime model risk: 2.2%. Prior Study Comparison: 11/05/2016 Bilateral Screening Mammogram, [facility]. 02/23/2019 Bilateral Screening Mammogram, [facility]. 08/31/2020 Bilateral Screening Mammogram, [facility]. Tissue Density: The breast tissue is heterogeneously dense. This may lower the sensitivity of mammography. Findings: Analyzed By CAD. In the right breast, subareolar asymmetric densities remain unchanged. There is no suspicious group of microcalcifications or new suspicious mass in either breast. Overall Assessment: Benign, BI-RAD 2 Management: Screening Mammogram of both breasts in 1 year. . Patient should continue monthly self-breast exams. A clinical breast exam by your physician is recommended on an annual basis. This exam should not preclude additional follow-up of suspicious palpable abnormalities. Note on Deepthi scores and lifetime risk: 1. A Deepthi score greater than 3% is considered moderate risk. If this is the case, consider specialist referral to assess eligibility for a risk reducing agent. 2. If overall lifetime risk for the development of breast cancer is 20% or higher, the patient may qualify for future screening with alternating mammogram and breast MRI. Electronically signed and approved by: Roberto Lunsford M.D. Radiologist
== END | disposition home or self-care (01) ==
LOC: RADMAMWWP 13:30
PROVIDERS: ATTEND Internal Medicine Geriatric Medicine
DX: Z12.31 Encounter for screening mammogram for malignant neoplasm of breast (principal); Z78.0 Asymptomatic menopausal state; Z80.3 Family history of malignant neoplasm of breast
CPT/HCPCS: 77063; 77067

== ENCOUNTER → 2023-08-26 | Outpatient (CLI) | payer MEDICARE ==
--- NOTE | 2023-08-26 14:35 | XR ---
EXAMINATION TYPE: XR cervical spine comp DATE OF EXAM: 08/26/2023 COMPARISON: 07/13/2019 HISTORY: 83 year-old female in 5 4.2, cervicalgia, neck pain, numbness down both arms. TECHNIQUE: 6 views FINDINGS: Multilevel facet and uncovertebral joint arthropathy greatest in the mid and lower cervical spine. No predental space widening or prevertebral soft tissue swelling. Degenerative change of the C1 dens ar ticulation. Moderate to advanced disc/endplate degenerative change at C6-C7 and C7-T1. The cervicothoracic juncti on is obscured by the patient's shoulders and not assessed. Normal odontoid view. Reversal of the normal cervical lordosis along the lower cervical spine. Degenerative grade 1 anterolisthesis C3-C4, C4-C5, C5-C6. Grade 1 retrolisthesis C6-C7. On the right, multilevel mild bony neuroforaminal narrowing, mild to moderate at C2-C3 and C3-C4. On the left, there appears to be severe bony neural foraminal narrowing at C6-C7 and moderate at C5-C 6 and C7-T1. Mild C4-C5. IMPRESSION: 1. Moderate to advanced spondylotic change especially mid to lower cervical spine shows slight progre ssion from 2019. 2. Degenerative grade 1 spondylolisthesis C3-C7 levels, newly developed at C3-C4. 3. Severe bony neuroforaminal narrowing on the left at C6-C7. Additional variable mild and moderate n euroforaminal narrowing as outlined above.
== END | disposition home or self-care (01) ==
LOC: RADXRMAIN 13:40
PROVIDERS: ATTEND Internal Medicine Geriatric Medicine
DX: M47.812 Spondylosis without myelopathy or radiculopathy, cervical region (principal); M43.12 Spondylolisthesis, cervical region; M99.71 Connective tissue and disc stenosis of intervertebral foramina of cervical region
CPT/HCPCS: 72050

== ENCOUNTER → 2024-01-11 | Outpatient (CLI) | payer MEDICARE ==
--- NOTE | 2024-01-14 19:40 | MR ---
EXAMINATION TYPE: MR cervical spine wo/w con DATE OF EXAM: 01/11/2024 COMPARISON: None HISTORY: Neck pain into jean-pierre upper extremities CONTRAST: Performed utilizing 6.5 mL intravenous Gadavist gadolinium contrast. TECHNIQUE: Multiplanar multiecho imaging on a 3.0 [place]ha magnet is performed through the cervical spin e. FINDINGS: The craniovertebral junction is normal. Vertebral body alignment is a subtle kyphosis cent ered at C5. A mild grade 1 retrolisthesis of C the posterior C7 is present. There is mild anterolisth esis of C3 on C4 and C4 anteriorly on C5. Anterior vertebral body spurring from inferior endplates is present C3-C6. Cord maintains normal signal through its visualized course. There is signal abnormality within the C7-T1 and scattered thoracic vertebral bodies within the field -of-view. Correlate for degenerative changes. C7-T1: No focal disc herniation or significant disc bulge is evident. No spinal canal stenosis or n eural foraminal stenosis is present. C6-7: There is a central protrusion with mild anterior thecal sac compression. This comes in close ap proximation with the spinal cord. No AP spinal canal stenosis is present. Neural foramen is patent.. C5-6: Mild broad-based disc bulge has mild anterior thecal sac compression. Cord contact is evident. No AP spinal canal stenosis is present. Neural foramen are patent.. C4-5: Broad central disc bulge is present with mild anterior thecal sac compression. Cord contact is present without cord deformity. No spinal canal stenosis is present. Neural foramen are patent. C3-4: No focal disc herniation or significant disc bulge is evident. No spinal canal stenosis or danay ral foraminal stenosis is present. C2-3: No focal disc herniation or significant disc bulge is evident. No spinal canal stenosis or danay ral foraminal stenosis is present. IMPRESSION: 1. Multilevel disc bulges with mild to moderate anterior thecal sac compression. This appears greates t C4-5 and C5-6 levels which may have cord contact without cord deformity or spinal canal stenosis. 2. Anterolisthesis upper cervical spine with retrolisthesis of C6 posterior on C7. No spinal canal st enosis.
== END | disposition home or self-care (01) ==
LOC: RADMRIMAIN 11:30
PROVIDERS: ATTEND Internal Medicine Geriatric Medicine
DX: M50.30 Other cervical disc degeneration, unspecified cervical region (principal); M43.12 Spondylolisthesis, cervical region; G62.9 Polyneuropathy, unspecified
CPT/HCPCS: 72156; A9585

== ENCOUNTER 2024-09-26 07:02 | Emergency (ER) | payer MEDICARE ==
--- NOTE | 2024-09-26 07:38 | ED ---
General Adult HPI - General Chief complaint: Fall Stated complaint: Fall, Face Injury Time Seen by Provider: 09/26/24 07:09 Source: patient, RN notes reviewed, old records reviewed Mode of arrival: ambulatory Limitations: no limitations - History of Present Illness Initial comments: 84-year-old female presents status post fall while going upstairs. Patient states she tripped falling forward striking her face and injuring her right shoulder, left hand and left knee. No loss consciousness. Patient denied preceding symptoms. Her main complaint is to the right shoulder. She does have some neck pain and headache as well. - Related Data Home Medications Medication Instructions Recorded Confirmed Albuterol Sulfate [Proair Hfa] 1 - 2 puff INHALATION Q6HR PRN 12/14/15 06/04/21 Cholecalciferol [Vitamin D3] 2,000 unit PO QAM 12/14/15 06/04/21 Labetalol [Trandate] 100 mg PO BID 12/14/15 06/04/21 Montelukast [Singulair] 10 mg PO HS 12/14/15 06/04/21 Multivitamin/Iron/Folic Acid 1 each PO QAM 12/14/15 06/04/21 [Centrum Complete Multivit Tab] Omeprazole [PriLOSEC] 20 mg PO AC-BRKFST 12/14/15 06/04/21 Triamterene-Hctz 37.5-25Mg 1 cap PO DAILY 12/14/15 06/04/21 [Dyazide 37.5-25 Capsule] lisinopriL 20 mg PO BID 12/14/15 06/04/21 valACYclovir HCL [Valtrex] 500 mg PO BID PRN 12/14/15 06/04/21 Naproxen Sodium [Aleve] 220 mg PO DAILY PRN 11/28/19 06/04/21 Biotin [Biotin Disolve] 1,000 mcg PO DAILY 04/10/21 06/04/21 Cetirizine HCl [Zyrtec] 10 mg PO DAILY 04/10/21 06/04/21 Estrogen,Con/M-Progest Acet 1 tab PO Q3D 04/10/21 06/04/21 [Prempro 0.3 mg-1.5 mg Tablet] Magnesium 250 mg PO DAILY 04/10/21 06/04/21 Folic Acid Tab 200 mg PO BID 06/04/21 06/04/21 Mucinex Nasal [facility] 1 spray NASAL DIRECTED PRN 06/04/21 06/04/21 Allergies Allergy/AdvReac Type Severity Reaction Status Date / Time cat dander Allergy tightness Verified 09/26/24 07:09 in throat "feel phlegm gathering in throat" cefaclor [From Ceclor] Allergy "burning Verified 09/26/24 07:09 sensation" dog dander Allergy tightness Verified 09/26/24 07:09 in throat "feel phlegm gathering in throat" Penicillins Allergy Rash/Hives Verified 09/26/24 07:09 tree and shrub pollen Allergy tightness Verified 09/26/24 07:09 in throat "feel phlegm gathering in throat" Sulfa (Sulfonamide AdvReac Unknown Verified 09/26/24 07:09 Antibiotics) smoke Allergy Unknown Uncoded 09/26/24 07:09 Review of Systems ROS Statement: Those systems with pertinent positive or pertinent negative responses have been documented in the HPI. ROS Other: All systems not noted in ROS Statement are negative. Past Medical History Past Medical History: Asthma, Cancer, Chest Pain / Angina, Eye Disorder, GERD/Reflux, Hyperlipidemia, Hypertension, Osteoarthritis (OA) Additional Past Medical History / Comment(s): Snow's esophagus,bulging discs in cervical & lumbar region, "a lot" of torn tendons in jean-pierre shoulders, arthritis in bilateral knees, bronchitis, reactive asthma, melanoma, squamous cell cancer, varicose veins History of Any Multi-Drug Resistant Organisms: None Reported Past Surgical History: Cholecystectomy, Joint Replacement, Orthopedic Surgery Additional Past Surgical History / Comment(s): cystocele & rectocele repair; rhinoplasty, LT TKA, jean-pierre cataract removed, melanoma removed from left foot and rt shoulder, squamous cell cancer removed rt hand Past Anesthesia/Blood Transfusion Reactions: Postoperative Nausea & Vomiting (PONV) Additional Past Anesthesia/Blood Transfusion Reaction / Comment(s): . Past Psychological History: No Psychological Hx Reported Smoking Status: Former smoker Past Alcohol Use History: Occasional Past Drug Use History: None Reported - Past Family History Mother Family Medical History: Cancer Additional Family Medical History / Comment(s): breast cancer Father Additional Family Medical History / Comment(s): ruptured AAA General Exam Limitations: no limitations General appearance: alert, in no apparent distress Eye exam: Present: normal appearance, PERRL, other (2 cm irregular laceration above the right eye) ENT exam: Present: other (Abrasion to the bridge of the nose) Neck exam: Present: other (Soft collar placed by patient prior to arrival) Respiratory exam: Present: normal lung sounds bilaterally. Absent: respiratory distress, wheezes Cardiovascular Exam: Present: regular rate, normal rhythm GI/Abdominal exam: Present: soft. Absent: distended, tenderness Extremities exam: Present: other (Abrasion to the dorsal surface of the left hand. Abrasion to the anterior surface of the left knee. Pain with range of motion of the right shoulder. Distal pulses intact.) Neurological exam: Present: alert, oriented X3, CN II-XII intact. Absent: motor sensory deficit Psychiatric exam: Present: normal affect, normal mood Skin exam: Present: warm Course Vital Signs 09/26/24 09/26/24 07:06 08:54 Temperature 97.6 F Pulse Rate 72 76 Respiratory 20 18 Rate Blood Pressure 163/75 159/90 O2 Sat by Pulse 99 97 Oximetry Medical Decision Making - Medical Decision Making Was pt. sent in by a medical professional or institution (Dr. PA, ANIMAL ASSISTED THERAPIST, urgent care, hospital, or [place] health care facility...) When possible be specific @ -No Did you speak to anyone other than the patient for history (EMS, parent, family, police, friend...)? What history was obtained from this source @ -No Did you review nursing and triage notes (agree or disagree)? Why? @ -I reviewed and agree with nursing and triage notes Were old charts reviewed (outside hosp., previous admission, EMS record, old EKG, old radiological studies, urgent care reports/EKG's, [place] health care facility records)? Report findings @ -No old charts were reviewed Differential Diagnosis: Traumatic injury from fall, intracranial hemorrhage, cervical fracture or subluxation, acute fracture of the left hand, right forearm or left knee. EKG interpreted by me (3pts min.). @ -As above X-rays interpreted by me (1pt min.). @X-rays are performed of the right shoulder and humerus, left hand and left knee. No acute displaced fracture or dislocation. CT interpreted by me (1pt min.). @ -CT brain shows small intraparenchymal hemorrhage in the right frontal lobe without subdural or mass effect. U/S interpreted by me (1pt. min.). @ -None done What testing was considered but not performed or refused? (CT, X-rays, U/S, labs)? Why? @ -None What meds were considered but not given or refused? Why? @ -None Did you discuss the management of the patient with other professionals (martha ramos i.e. , PA, ANIMAL ASSISTED THERAPIST, lab, RT, psych nurse, manager social responsibility, entry level assistant manager, teacher, chemistry technical officer, case reviewer)? Give summary @ -Transfer team at [facility], accepting physician Dr. Reece. Was smoking cessation discussed for >3mins.? @ -No Was critical care preformed (if so, how long)? @ -Yes, 35 minutes Were there social determinants of health that impacted care today? How? (Homelessness, low income, unemployed, alcoholism, drug addiction, transportation, low edu. Level, literacy, decrease access to med. care, half-way, rehab)? @ -No Was there de-escalation of care discussed even if they declined (Discuss DNR or withdrawal of care, Hospice)? DNR status @ -No What co-morbidities impacted this encounter? (DM, HTN, Smoking, COPD, CAD, Cancer, CVA, ARF, Chemo, Hep., AIDS, mental health diagnosis, sleep apnea, morbid obesity)? @ -None Was patient admitted / discharged? Hospital course, mention meds given and route, prescriptions, significant lab abnormalities, going to OR and other pertinent info. @ -[84-year-old female status post mechanical fall with head injury. Patient had minor injury to the right shoulder at left hand and left knee as well. CT was performed of the brain which shows a small intraparenchymal hemorrhage in the right frontal lobe without skull fracture without mass effect. Patient is not on any anticoagulation. She is alert and oriented and has a nonfocal neurologic exam with a GCS of 15. Given the intraparenchymal hemorrhage she will require monitoring. She will be transferred to facility neurosurgery consultation available. Patient requests [facility]. IV will be established, laboratory test including CBC, CMP, PT/INR is pending Undiagnosed new problem with uncertain prognosis? @ -No Drug Therapy requiring intensive monitoring for toxicity (Heparin, Nitro, Insulin, Cardizem)? @ -No Were any procedures done? @ -No Diagnosis/symptom? @ -Fall, intracranial hemorrhage Acute, or Chronic, or Acute on Chronic? @Acute Uncomplicated (without systemic symptoms) or Complicated (systemic symptoms)? @ -Complicated Side effects of treatment? @ -No Exacerbation, Progression, or Severe Exacerbation? @ -No Poses a threat to life or bodily function? How? (Chest pain, [place], [place], pneumonia, PE, COPD, DKA, ARF, appy, cholecystitis, CVA, Diverticulitis, Homicidal, Suicidal, threat to staff... and all critical care pts) @Moderate risk, intracranial hemorrhage - Lab Data Result diagrams: 09/26/24 08:53 Lab Results 09/26/24 09/26/24 Range/Units 08:53 08:53 WBC 10.4 (3.8-10.6) k/uL RBC 4.83 (3.80-5.40) m/uL Hgb 15.0 (11.4-16.0) gm/dL Hct 45.0 (34.0-46.0) % MCV 93.1 (80.0-100.0) fL MCH 31.0 (25.0-35.0) pg MCHC 33.3 (31.0-37.0) g/dL RDW 12.2 (11.5-15.5) % Plt Count 354 (150-450) k/uL MPV 7.1 Neutrophils % 75 % Lymphocytes % 17 % Monocytes % 5 % Eosinophils % 2 % Basophils % 0 % Neutrophils # 7.8 H (1.3-7.7) k/uL Lymphocytes # 1.8 (1.0-4.8) k/uL Monocytes # 0.5 (0-1.0) k/uL Eosinophils # 0.2 (0-0.7) k/uL Basophils # 0.0 (0-0.2) k/uL PT 10.7 (10.0-12.5) sec INR 1.0 (<1.2) APTT 26.0 (22.0-30.0) sec Critical Care Time Critical Care Time: Yes Total Critical Care Time: 35 Disposition Clinical Impression: Fall, Intracranial hemorrhage Disposition: OTHER INSTITUTION NOT DEFINED Condition: Stable Is patient prescribed a controlled substance at d/c from ED?: No Referrals: Michael Jacobs MD [Primary Care Provider] - 1-2 days Time of Disposition: 08:21 - Out of Hospital Transfer - Req. Specs Out of Hospital Transfer - Requested Specifics: Other Emergency Center ([facility])
[2024-09-26] MEDS: LIDOCAINE 1% INJ 10MG/ML (20 ML MDV) SQ ONE (08:06)
--- NOTE | 2024-09-26 08:11 | CT ---
EXAMINATION TYPE: CT brain cspine wo con DATE OF EXAM: 09/26/2024 7:49 AM COMPARISON: None. CLINICAL INDICATION: Female, 84 years old with history of fall/pain, Fall, open wound on the bridge o f nose and above Rt eye TECHNIQUE: CT of the brain is performed utilizing 3 mm thick sections through the posterior fossa and 3 mm thick sections through the remaining calvarium. Study is performed within 24 hours of arrival to the hospital. Contrast used: mL of , (none if empty) CT DLP: 1263.4 mGycm, Automated exposure control for dose reduction was used. FINDINGS: No abnormal hyperdensity is present to suggest an acute intracranial hemorrhage. No mass lesion is evident. No acute infarcts are evident. Ventricles and sulci are appropriate for the patient age. Paranasal sinuses and mastoid air cells within the [id number] are clear. IMPRESSIONS: 1. No acute intracranial process. Follow-up MRI can be performed as clinically indicated. 2. Soft tissue swelling over the bridge of nose. No underlying fractures CT cervical spine. COMPARISON: 11/03/2022 TECHNIQUE: CT of the cervical spine is performed in the axial plane at 2 mm thick sections. Reconstr ucted images in the coronal, and sagittal plane are reviewed on the computer. FINDINGS: No acute fractures are evident. There is a grade 1 spondylolisthesis of C3 anteriorly on C4 and C4 anteriorly on C5. Some mild retrol isthesis of C6 posteriorly on C7 is present. There is loss of disc height C6-7 and C7-T1 through the upper thoracic spine. Spondylosis is present. Narrowing of the upper cervical spine disc spaces are present. Findings are stable from comparison. Vertebral body heights are preserved. Prevertebral space is normal. No spinal canal stenosis is evident. Left foraminal stenosis is present C6-7. Mild right foraminal narrowing is present C6-7 IMPRESSION: 1. Advanced degenerative disc changes within the lower cervical spine. Milder degenerative disc cancino es are in the upper cervical spine. 2. Spondylolisthesis discussed above is stable from comparison. 3. Foraminal narrowing is present greatest at C6-7 on the left. 4. No acute osseous abnormality radiographically apparent [facility], , 09/26/2024 8:08 AM
--- NOTE | 2024-09-26 08:14 | XR ---
EXAMINATION TYPE: XR hand complete LT DATE OF EXAM: 09/26/2024 8:04 AM COMPARISON: None. CLINICAL INDICATION: Female, 84 years old with history of fall/pain, TECHNIQUE: 3 view(s) obtained. FINDINGS: No acute fractures or dislocations evident. Advanced degenerative joint space changes are present at the distal interphalangeal joint spaces of the index and middle finger. Advanced degenerative joint c hanges are at the carpometacarpal junction of the thumb. Follow up exams can be performed 7-10 days from acute trauma for continued pain. IMPRESSION: 1. No acute osseous abnormality left hand. 2. Advanced degenerative joint changes carpometacarpal junction of the thumb and distal interphalange al joint spaces of the index and middle fingers [facility], , 09/26/2024 8:12 AM
--- NOTE | 2024-09-26 08:24 | XR ---
EXAMINATION TYPE: XR humerus RT DATE OF EXAM: 09/26/2024 8:04 AM COMPARISON: None. CLINICAL INDICATION: Female, 84 years old with history of fall/pain, TECHNIQUE: 2 view(s) obtained. FINDINGS: Chronic rotator cuff tear medially present. Humeral head is elevated in relation to the glenoid. No a cute fractures are evident. Elbow joint space appears intact on these images. Follow up exams can be performed 7-10 days from acute trauma for continued pain IMPRESSION: 1. No acute osseous abnormality right humerus [facility], , 09/26/2024 8:22 AM
--- NOTE | 2024-09-26 08:26 | XR ---
EXAMINATION TYPE: XR shoulder complete RT DATE OF EXAM: 09/26/2024 8:04 AM COMPARISON: None. CLINICAL INDICATION: Female, 84 years old with history of fall/pain, TECHNIQUE: XR shoulder complete RT 3 view(s) obtained. FINDINGS: The humeral head articulates with the glenoid. There is elevation of the humeral head in relation to the glenoid with loss of the acromiohumeral joint space. Findings could be compatible with chronic ro tator cuff tear. The acromio-clavicular junction is normal. No acute fractures or dislocations are evident. A follow up study can be performed 7-10 days from acute trauma for continued pain. MRI can be perfor med if soft tissue evaluation would be of benefit. IMPRESSION: 1. No acute osseous shoulder abnormality. 2. Clinical consideration for chronic rotator cuff tear. [facility], , 09/26/2024 8:23 AM
--- NOTE | 2024-09-26 08:27 | XR ---
EXAMINATION TYPE: XR knee complete LT DATE OF EXAM: 09/26/2024 8:04 AM COMPARISON: None. CLINICAL INDICATION: Female, 84 years old with history of fall/pain, TECHNIQUE: 3 view(s) obtained. FINDINGS: There is a left knee prosthesis present. No acute fractures are evident. No dislocation or subluxatio n identified. No significant joint effusion evident. Follow-up studies can be performed 7-10 days from acute trauma for continued pain. IMPRESSION: 1. No acute osseous abnormality left knee [facility], , 09/26/2024 8:25 AM
[2024-09-26] MEDS: SODIUM CHLORIDE 0.9% 1,000 ML IV SCH (08:46)
[2024-09-26] MEDS: MORPHINE SULFATE 2 MG/ML SYRINGE IVP STA (08:50)
[2024-09-26] MEDS: DIPH,PERTUS(ACELL)TETVAC-LF 0.5 ML VIAL IM ONE (08:50)
[2024-09-26 08:54] VITALS: RESP 18
[2024-09-26 09:04] LABS: Basophils % (A) 0 %; Eosinophils # (A) 0.2 k/uL (0-0.7); Eosinophils % (A) 2 %; Lymphocytes # (A) 1.8 k/uL (1.0-4.8); Lymphocytes % (A) 17 %; MCHC 33.3 g/dL (31.0-37.0); MCV 93.1 fL (80.0-100.0); Mean Platelet Volume 7.1; Monocytes # (A) 0.5 k/uL (0-1.0); Monocytes % (A) 5 %; Neutrophils # (A) 7.8 k/uL (1.3-7.7); Neutrophils % (A) 75 %; Platelet Count 354 k/uL (150-450); RBC 4.83 m/uL (3.80-5.40); RDW 12.2 % (11.5-15.5); WBC 10.4 k/uL (3.8-10.6)
[2024-09-26 09:14] LABS: Prothrombin Time 10.7 sec (10.0-12.5)
[2024-09-26 09:26] LABS: ALT 18 U/L (4-34); African American GFR (CKD) >90 (>60 ml/min/1.73 sqM); Albumin 4.8 g/dL (3.5-5.0); Anion Gap 10 mmol/L; Blood Urea Nitrogen 15 mg/dL (7-17); Calcium 10.2 mg/dL (8.4-10.2); Carbon Dioxide 26 mmol/L (22-30); Chloride 99 mmol/L (98-107); Glucose 98 mg/dL (74-99); Non-African American GFR(CKD) 83 (>60 ml/min/1.73 sqM); Sodium 135 mmol/L (137-145); Total Bilirubin 0.7 mg/dL (0.2-1.3); Total Protein 7.4 g/dL (6.3-8.2)
[2024-09-26 09:34] LABS: AST 32 U/L (14-36); Alkaline Phosphatase 98 U/L (38-126); Potassium 4.3 mmol/L (3.5-5.1)
[2024-09-26 09:38] VITALS: BP 162/88; PULSE 72; TEMP 98
== END 2024-09-26 09:37 | disposition other institution (70) ==
LOC: EC 07:02
DX: S06.30AA Unspecified focal traumatic brain injury with loss of consciousness status unknown, initial encounter (principal); S60.512A Abrasion of left hand, initial encounter; S80.212A Abrasion, left knee, initial encounter; R40.2362 Coma scale, best motor response, obeys commands, at arrival to emergency department; R40.2142 Coma scale, eyes open, spontaneous, at arrival to emergency department; R40.2252 Coma scale, best verbal response, oriented, at arrival to emergency department; Z23 Encounter for immunization; Z87.891 Personal history of nicotine dependence; Z88.1 Allergy status to other antibiotic agents; Z88.0 Allergy status to penicillin; Z88.2 Allergy status to sulfonamides; Z91.018 Allergy to other foods; Z91.09 Other allergy status, other than to drugs and biological substances; W10.9XXA Fall (on) (from) unspecified stairs and steps, initial encounter
CPT/HCPCS: 36415; 80053; 85025; 85610; 85730; 73030; 73060; 73130; 73562; 72125; 70450; 90715; 99285; 96374; 96361; 90471; J2003; J2270

== ENCOUNTER → 2024-10-17 | Outpatient (CLI) | payer MEDICARE ==
--- NOTE | 2024-10-19 22:09 | BD ---
EXAMINATION TYPE: Axial Bone Density DATE OF EXAM: 10/17/2024 CLINICAL HISTORY: 84 years old Female. ICD-10 CODE: M81.0 AGE-RELATED OSTEOPOROSIS W/ , Additional H istory: Height: 62 in Weight: 141 lbs EXAM MEASUREMENTS: Bone mineral densitometry was performed using the [employer] System. Bone mineral density as measured about the Lumbar spine is: ----- L1-L4(G/cm2): 1.687 T Score Values are as follows: ----- L1: 2.1 ----- L2: 3.3 ----- L3: 5.5 ----- L4: 5.5 ----- L1-L4: 4.2 Z Score Values are as follows: ----- L1: 4.0 ----- L2: 5.3 ----- L3: 7.5 ----- L4: 7.4 ----- L1-L4: 6.1 Bone mineral density has: Decreased -2.6% since study of: 03/02/2019 Bone mineral density about the R hip (g/cm2): 1.227 Bone mineral density about the L hip (g/cm2): 1.316 T Score values are as follows: -----R Neck: 2.0 -----L Neck: 2.1 -----R Total: 1.7 -----L Total: 2.4 Z Score values are as follows: -----R Neck: 4.3 -----L Neck: 4.4 -----R Total: 4.0 -----L Total: 4.7 Bone mineral density has: Decreased -9.0% since study of: 03/02/2019 FRAX%s: The graph provided illustrates a 5.0% chance for a major osteoporotic fx and a 0.4% chance fo r the hips probability for fx in 10 years time. IMPRESSION: Normal (Values between +1 and -1 indicate normal bone mass). Consider repeating this study in 5 year s or sooner if there is some new clinical indication. NOTE: T-SCORE=SD OF THE YOUNG ADULT MEAN. [facility], , 10/19/2024 10:06 PM
== END | disposition home or self-care (01) ==
LOC: RADBDWWP 08:53
PROVIDERS: ATTEND Internal Medicine Geriatric Medicine
DX: M81.0 Age-related osteoporosis without current pathological fracture (principal)
CPT/HCPCS: 77080